=== PATIENT | female | born 1995 | race Caucasian/White ===

== ENCOUNTER 2017-08-16 08:25 | Inpatient (IN) ==
[2017-08-16] MEDS ORDERED: PROPOFOL 200 MG/20 ML VIAL IV ONE (09:00)
[2017-08-16] MEDS ORDERED: SUCCINYLCHOLINE 200 MG/10 ML VIAL ONE (09:00)
[2017-08-16] MEDS ORDERED: ONDANSETRON 4 MG/2 ML VIAL ONE (09:00)
[2017-08-16] MEDS ORDERED: LIDOCAINE 100 MG/5 ML SYRINGE ONE (09:00)
[2017-08-16 09:28] LABS: Apearance,Urine Slightly Hazy (Clear); Bacteria,Urine Occasional /HPF (Few); Bilirubin,Urine Negative (Negative); Blood, Urine Negative (Negative); Glucose,Urine (UA) Negative (Negative); Ketones,Urine 5 mg/dL (Negative); Mucus,Urine Many /LPF (Occasional); Nitrite,Urine Negative (Negative); Protein,Urine 100 MG/DL; RBC,Urine 6 /HPF (0-4); Squamous Epithelial Cell,Urine Occasional /HPF (0-10); Urine Color Amber (Yellow); WBC,Urine 3 /HPF (0-6)
[2017-08-16] MEDS ORDERED: ONDANSETRON 4 MG/2 ML VIAL IV ONE (09:42)
[2017-08-16] MEDS ORDERED: BUTORPHANOL 2 MG/ML VIAL IV ONE (09:42)
[2017-08-16] MEDS ORDERED: LACTATED RINGERS 1,000 ML IV ONE ×2 (09:42→12:31)
[2017-08-16 10:49] LABS: Albumin 2.8 G/DL (3.4-5.0); Bilirubin,Total 0.5 MG/DL (0.2-1.0); Osmolality,Calculated 278.3 MOS/KG (273-304); Potassium 4.1 MMOL/L (3.5-5.1); Total Protein 6.5 G/DL (6.4-8.3)
[2017-08-16 11:11] LABS: Basophils % 0.1 % (0.0-0.8); Eosinophils % 0.1 % (0.00-10.9); Hematocrit 34.5 VOL% (35.7-47.0); Hemoglobin 11.8 GM/DL (12.0-16.0); Immature Granulocytes % 0.6 %; Immature Granulocytes Absolute 0.09 #; Lymphocytes # 0.9 10*3/uL (1.4-4.0); Lymphocytes % 5.6 % (21.3-54.2); Mean Corpuscular HGB Conc 34.2 GM/DL (32-36); Mean Corpuscular Hemoglobin 30 PG (27-34); Mean Corpuscular Volume 87.8 FL (87-102); Mean Platelet Volume 12.7 FL (9.6-12.0); Monocytes # 0.7 10*3/uL (0.11-0.8); Monocytes % 4.4 % (1.7-12.7); Neutrophils # 14.1 10*3/uL (1.4-7.4); Neutrophils % 89.2 % (38.7-73.9); Platelet Count 132 T/CUMM (130-400); Red Blood Count 3.93 MC/CUMM (3.8-5.5); Red Cell Distribution Width 13.4 % (9.3-17.3); White Blood Count 15.8 T/CUMM (4-12)
[2017-08-16 11:24] LABS: INR 0.9; PT Patient Result 9.5 SECS; Partial Thromboplastin Time 25.9 SECS (0-40)
[2017-08-16] MEDS ORDERED: BETAMETH SODIUM PHOS/ACETATE 30 MG/5 ML VIAL IM SCH (11:30)
[2017-08-16] MEDS ORDERED: AMPICILLIN INJ 2,000 MG in SODIUM CHLORIDE 0.9% 50 ML IV SCH (11:30)
[2017-08-16] MEDS ORDERED: LACTATED RINGERS 1,000 ML IV SCH ×2 (12:00→12:30)
[2017-08-16] MEDS: LABETALOL 100 MG TABLET PO SCH ×2 (12:05→21:06)
[2017-08-16] MEDS ORDERED: MAGNESIUM SULF RIDER 100 ML IV ONE (12:07)
[2017-08-16] MEDS ORDERED: CITRIC ACID/SODIUM CITRATE 30 ML UDCUP PO ONE (12:29)
[2017-08-16] MEDS ORDERED: FAMOTIDINE 20 MG/2 ML VIAL IV ONE (12:29)
[2017-08-16] MEDS ORDERED: ceFAZolin 2,000 MG in PREMIX 1 EACH IV ONE (12:29)
[2017-08-16] MEDS ORDERED: MAGNESIUM SULF DRIP 40 GM/1,000 ML ML IV SCH (12:30)
[2017-08-16] MEDS ORDERED: LACTATED RINGERS 500 ML IV ONE (12:31)
[2017-08-16] MEDS ORDERED: OXYTOCIN/LR 20 UNIT/1,000 ML BAG IV ONE ×2 (12:54→13:37)
[2017-08-16] MEDS ORDERED: CARBOPROST TROMETHAMINE 250 MCG/ML AMP IM ONE (12:57)
[2017-08-16] MEDS ORDERED: HYDROmorphone 2 MG/1 ML VIAL ONE (13:01)
[2017-08-16] MEDS ORDERED: ACETAMINOPHEN 1,000 MG/100 ML VIAL IV ONE (13:04)
[2017-08-16] MEDS ORDERED: BISACODYL 10 MG SUPP RECTAL PRN (13:37)
[2017-08-16] MEDS ORDERED: HYDROCORTISONE 2.5% RECTAL CREAM 30 GM TUBE TOP PRN (13:37)
[2017-08-16] MEDS ORDERED: ACETAMINOPHEN 325 MG TABLET PO PRN (13:37)
[2017-08-16] MEDS ORDERED: BENZOCAINE 20%/MENTHOL 0.5% SPRAY 56 GM CAN TOP PRN (13:37)
[2017-08-16] MEDS ORDERED: WITCH HAZEL PADS 100/JAR TOP PRN (13:37)
[2017-08-16] MEDS ORDERED: ONDANSETRON 4 MG/2 ML VIAL IV PRN (13:37)
[2017-08-16] MEDS ORDERED: RHO(D) IMMUNE GLOBULIN 300 MCG SYRINGE IM ONE (13:37)
[2017-08-16] MEDS ORDERED: MEASLES/MUMPS/RUBELLA VACCINE 0.5 ML VIAL SUBCUT ONE (13:37)
[2017-08-16] MEDS ORDERED: DIPH/TET/ACEL PERT BOOSTER VACCINE 0.5 ML VIAL IM ONE (13:37)
[2017-08-16] MEDS ORDERED: LANOLIN 50% CREAM 0.3 OZ TUBE TOP PRN (13:37)
[2017-08-16] MEDS ORDERED: oxyCODONE/ACETAMINOPHEN 5-325 MG TABLET PO PRN ×2 (13:37)
[2017-08-16] MEDS ORDERED: fentaNYL 100 MCG/2 ML VIAL ONE (14:01)
[2017-08-16] MEDS ORDERED: MIDAZOLAM 2 MG/2 ML VIAL ONE (14:01)
[2017-08-16] MEDS ORDERED: NALOXONE 0.4 MG/ML VIAL IV PRN (14:16)
[2017-08-16] MEDS ORDERED: HYDROmorphone PCA 30 MG/30 ML SYRINGE IV SCH (14:30)
[2017-08-16] MEDS ORDERED: HYDROmorphone 2 MG/1 ML VIAL IV ONE (14:47)
[2017-08-16] MEDS ORDERED: DEXAMETHASONE 4 MG/1 ML VIAL IV SCH (17:00)
[2017-08-16] MEDS: DEXAMETHASONE 4 MG/1 ML VIAL IM SCH (17:53)
[2017-08-16 19:43] LABS: Basophils % 0.2 % (0.0-0.8); Hemoglobin 12.1 GM/DL (12.0-16.0); Immature Granulocytes % 1.5 %; Immature Granulocytes Absolute 0.32 #; Lymphocytes # 0.8 10*3/uL (1.4-4.0); Lymphocytes % 3.8 % (21.3-54.2); Mean Corpuscular HGB Conc 33.6 GM/DL (32-36); Mean Corpuscular Hemoglobin 30 PG (27-34); Mean Corpuscular Volume 87.8 FL (87-102); Mean Platelet Volume 12.1 FL (9.6-12.0); Monocytes # 0.3 10*3/uL (0.11-0.8); Monocytes % 1.3 % (1.7-12.7); NRBC # 0.02 10*3/uL; Neutrophils # 20.4 10*3/uL (1.4-7.4); Neutrophils % 93.2 % (38.7-73.9); Platelet Count 106 T/CUMM (130-400); Red Cell Distribution Width 13.7 % (9.3-17.3); White Blood Count 21.9 T/CUMM (4-12)
[2017-08-16 20:08] LABS: Albumin 2.5 G/DL (3.4-5.0); Bilirubin,Total 0.6 MG/DL (0.2-1.0); Calcium 8.1 MG/DL (8.5-10.1); Osmolality,Calculated 276.7 MOS/KG (273-304); Potassium 4.5 MMOL/L (3.5-5.1); Total Protein 5.9 G/DL (6.4-8.3)
[2017-08-16] MEDS: IBUPROFEN 800 MG TABLET PO PRN (21:22)
[2017-08-16 21:41] LABS: Band Neutrophils 3 % (0-10); Lymphocytes 2 % (20-55); Segmented Neutrophils 95 % (50-85)
[2017-08-16 21:42] LABS: Platelet Estimate Adequate; Total Cells Counted 100
[2017-08-17 05:41] LABS: Basophils % 0.1 % (0.0-0.8); Hematocrit 31.3 VOL% (35.7-47.0); Hemoglobin 10.4 GM/DL (12.0-16.0); Immature Granulocytes Absolute 0.21 #; Lymphocytes # 1.1 10*3/uL (1.4-4.0); Lymphocytes % 5.3 % (21.3-54.2); Mean Corpuscular HGB Conc 33.2 GM/DL (32-36); Mean Corpuscular Hemoglobin 29 PG (27-34); Mean Corpuscular Volume 88.4 FL (87-102); Mean Platelet Volume 12.9 FL (9.6-12.0); Monocytes # 0.3 10*3/uL (0.11-0.8); Monocytes % 1.6 % (1.7-12.7); NRBC # 0.02 10*3/uL; Neutrophils # 19.6 10*3/uL (1.4-7.4); Platelet Count 108 T/CUMM (130-400); Red Blood Count 3.54 MC/CUMM (3.8-5.5); Red Cell Distribution Width 13.9 % (9.3-17.3); White Blood Count 21.2 T/CUMM (4-12)
[2017-08-17] MEDS: DEXAMETHASONE 4 MG/1 ML VIAL IM SCH ×2 (06:03→18:23)
[2017-08-17 06:07] LABS: Band Neutrophils 1 % (0-10); Hypochromasia Slight; Lymphocytes 4 % (20-55); Nucleated Red Blood Cells 1 (0-5); Platelet Estimate Decreased; Segmented Neutrophils 94 % (50-85); Total Cells Counted 100
[2017-08-17 06:08] LABS: Giant Platelets Few
[2017-08-17 06:09] LABS: Alanine Aminotransferase 155 U/L (13-56); Albumin 2.1 G/DL (3.4-5.0); Alkaline Phosphatase 96 U/L (45-117); Aspartate Amino Transferase 192 U/L (0-37); Bilirubin,Total < 0.39 MG/DL (0.2-1.0); Blood Urea Nitrogen 13 MG/DL (7-18); Calcium 7.3 MG/DL (8.5-10.1); Glucose 135 MG/DL (74-106); Osmolality,Calculated 276.7 MOS/KG (273-304); Potassium 4.3 MMOL/L (3.5-5.1); Sodium 138 MMOL/L (136-145); Total Protein 5.3 G/DL (6.4-8.3)
[2017-08-17] MEDS: DOCUSATE SODIUM 100 MG CAPSULE PO SCH ×2 (09:04→20:08)
[2017-08-17] MEDS: LABETALOL 100 MG TABLET PO SCH ×2 (09:04→20:09)
[2017-08-17] MEDS ORDERED: DEXAMETHASONE 10 MG/1 ML VIAL IV SCH (16:30)
[2017-08-17] MEDS ORDERED: DEXAMETHASONE 4 MG/1 ML VIAL IV SCH (16:30)
[2017-08-17] MEDS ORDERED: INFLUENZA VIRUS VACCINE 0.5 ML SYRINGE IM ONE (17:25)
[2017-08-17] MEDS: IBUPROFEN 800 MG TABLET PO PRN (20:08)
[2017-08-18] MEDS: DEXAMETHASONE 4 MG/1 ML VIAL IM SCH ×2 (06:29→06:31)
[2017-08-18] MEDS: IBUPROFEN 800 MG TABLET PO PRN ×2 (06:33→21:16)
[2017-08-18] MEDS: MULTIVITAMIN (PRENATAL) TABLET PO SCH (09:57)
[2017-08-18] MEDS: DOCUSATE SODIUM 100 MG CAPSULE PO SCH ×2 (09:57→21:16)
[2017-08-18] MEDS: LABETALOL 100 MG TABLET PO SCH ×2 (09:57→21:16)
[2017-08-18 11:25] LABS: Alanine Aminotransferase 83 U/L (13-56); Albumin 2.4 G/DL (3.4-5.0); Alkaline Phosphatase 87 U/L (45-117); Aspartate Amino Transferase 46 U/L (0-37); Bilirubin,Direct < 0.100 MG/DL (0.0-0.20); Bilirubin,Indirect 0.3 MG/DL (0.0-1.0); Bilirubin,Total < 0.39 MG/DL (0.2-1.0); Total Protein 5.6 G/DL (6.4-8.3)
[2017-08-19] MEDS: IBUPROFEN 800 MG TABLET PO PRN ×2 (08:06→20:00)
[2017-08-19] MEDS ORDERED: MAGNESIUM HYDROXIDE SUSP 30 ML UDCUP PO PRN (09:34)
[2017-08-19] MEDS: LABETALOL 100 MG TABLET PO SCH ×3 (10:08→22:18)
[2017-08-19] MEDS: MULTIVITAMIN (PRENATAL) TABLET PO SCH (10:09)
[2017-08-19] MEDS: DOCUSATE SODIUM 100 MG CAPSULE PO SCH ×2 (10:09→20:00)
[2017-08-19] MEDS ORDERED: hydrALAZINE 20 MG/1 ML VIAL IV PRN (22:14)
[2017-08-20] MEDS: DOCUSATE SODIUM 100 MG CAPSULE PO SCH ×3 (01:11→20:03)
[2017-08-20] MEDS: LABETALOL 200 MG TABLET PO SCH ×3 (09:36→20:03)
[2017-08-20] MEDS: IBUPROFEN 800 MG TABLET PO PRN (09:36)
[2017-08-20] MEDS: MULTIVITAMIN (PRENATAL) TABLET PO SCH (09:36)
[2017-08-21] MEDS: IBUPROFEN 800 MG TABLET PO PRN (04:19)
[2017-08-21 07:28] VITALS: BP 148/83
[2017-08-21] MEDS: LABETALOL 200 MG TABLET PO SCH (09:39)
[2017-08-21] MEDS: MULTIVITAMIN (PRENATAL) TABLET PO SCH (09:40)
[2017-08-21] MEDS: DOCUSATE SODIUM 100 MG CAPSULE PO SCH (09:40)
== END 2017-08-21 13:10 | disposition home or self-care (01) | DRG 766 ==
LOC: N.LDOUT 08:25 → N.LD 08:28 → N.OB 08-17 16:00
PROVIDERS: ADMIT Specialist; ATTEND Specialist
PROC: LDCSECT (ICD-10-PCS; 2017-08-16 13:00)